=== PATIENT | female | born 1990 | race Caucasian/White ===

== ENCOUNTER → 2019-03-12 15:49 | Outpatient (CLI) | payer OTHER, SELFPAY ==
[2019-03-12 18:58] LABS: Probe Check PASS; Sample Adequacy Control PASS; Specimen Processing Control PASS; Trichomonas Vag DNA by PCR Negative (Negative)
[2019-03-12 19:55] LABS: Chlamydia Trachomatis by PCR Negative (Negative); Neisserai gonorrhoeae by PCR Negative (Negative); Probe Check PASS; Sample Adequacy Control PASS; Specimen Processing Control PASS
[2019-03-13 10:53] LABS: Hepatitis B Surface Antigen Non-Reactive (Nonreactive)
[2019-03-13 19:40] LABS: Rapid Plasmin Reagin (RPR) NONREACTIVE (NONREACTIVE)
[2019-03-14 10:59] LABS: HSV 2 IgG 9.28 index (0.00-0.90)
[2019-03-14 16:15] LABS: HIV - WCH Non-Reactive (Nonreactive)
== END ==
PROVIDERS: Visit Provider Obstetrics & Gynecology
DX: Z11.3 Encounter for screening for infections with a predominantly sexual mode of transmission (principal)
CPT/HCPCS: 36415; 86592; 86695; 86696; 86703; 87340; 87491; 87591; 87661

== ENCOUNTER → 2019-12-25 08:51 | Outpatient (CLI) | payer OTHER, SELFPAY ==
[2016-06-01 16:01] VITALS: BMI 27.3
[2019-12-25 10:39] LABS: Anion Gap 2 (5-15); BUN 8 mg/dL (7-18); BUN/Creat Ratio 9.7 RATIO (10-20); Calcium,Total 9.5 mg/dL (8.5-10.1); Chloride 108 mmol/L (98-107); Cholesterol 173 mg/dL (200); Creatinine, Serum 0.83 mg/dL (0.55-1.02); EST Glomerular Filtration Rate 87 mL/min (>60); Est Glom Filt Rate - Afr Amer 105 mL/min (>60); Glucose 113 mg/dL (74-106); High Density Lipoprotein 32 mg/dL; Potassium 4.2 mmol/L (3.5-5.1); Sodium Level 139 mmol/L (136-145); Thyroid Stim Hormone (TSH) 1.32 uIU/mL (0.358-3.74); Triglycerides 187 mg/dL; Very Low Density Lipoprotein 37 mg/dL (5-40)
== END ==
PROVIDERS: PCP Family Medicine; Referring Provider Family Medicine; Visit Provider Family Medicine
DX: Z00.00 Encounter for general adult medical examination without abnormal findings (principal); F32.9 Major depressive disorder, single episode, unspecified
CPT/HCPCS: 36415; 80048; 80061; 84443

== ENCOUNTER → 2020-12-24 08:42 | Outpatient (CLI) | payer OTHER, MEDICAID, SELFPAY ==
[2020-12-24 10:22] LABS: Anion Gap 8 (5-15); BUN 10 mg/dL (7-18); BUN/Creat Ratio 11.3 RATIO (10-20); Calcium,Total 9.9 mg/dL (8.5-10.1); Chloride 106 mmol/L (98-107); Creatinine, Serum 0.88 mg/dL (0.55-1.02); EST Glomerular Filtration Rate 80 mL/min (>60); Est Glom Filt Rate - Afr Amer 97 mL/min (>60); Glucose 103 mg/dL (74-106); Potassium 4.2 mmol/L (3.5-5.1); Sodium Level 139 mmol/L (136-145)
== END ==
PROVIDERS: PCP Family Medicine; Referring Provider Family Medicine; Visit Provider Family Medicine
DX: F31.9 Bipolar disorder, unspecified (principal)
CPT/HCPCS: 36415; 80048

== ENCOUNTER 2022-09-23 10:16 | Emergency (ER) | payer BC, MEDICAID, SELFPAY ==
[2022-09-23 10:17] VITALS: BP 156/87; PULSE 88; RESP 14; TEMP 36.2; O2SAT 98; BMI 30.7
--- NOTE | 2022-09-23 10:27 | RAD_ITS ---
HISTORY: pain. TECHNIQUE: XR Shoulder Min 2 Views. COMPARISON: None. FINDINGS: BONES : No acute fracture identified. Mineralization unremarkable. JOINTS: No dislocation. Joint spaces maintained. SOFT TISSUES: Left lung apex clear. RAD/Shoulder min 2 Views IMPRESSION: No acute fracture or dislocation identified in the left shoulder. Electronically Signed: Maryuri Murrieta MD at 11:14 EDT ,
--- NOTE | 2022-09-23 10:28 | EDS_ITS ---
HPI History of Present Illness Chief Complaint: Upper Extremity Injury Detail of Chief Complaint: Left shoulder injury Informant: patient Onset/Context/Timing Onset: Weeks Context: Gradual Onset Current Severity: Moderate Maximum Severity: Moderate Narrative Narrative: Patient presents with 3 weeks of left shoulder pain. She moved on September 03 and believes she injured her shoulder at that time. She continued to try to push through it for the first week. She continues to have pain that is worse with certain movements. She denies paresthesias. She had an appointment with [facility] this morning but states they refused to see her when she told them she did not get paid until next week. She has not been seen for this injury previously. She is right-hand dominant. PFSH PFS Medical History no medical history no medical history Home Medications sulfamethoxazole 800 mg-trimethoprim 160 mg tablet 1 tab PO BID ##6 06/01/16 [Rx Last Taken Unknown] naproxen 500 mg tablet (Naprosyn) 500 mg PO BID PRN pain #20 tabs 09/23/22 [Rx Last Taken Unknown] prednisone 20 mg tablet 60 mg (3 x 20 mg) PO DAILY #15 TABLETS 09/23/22 [Rx Last Taken Unknown] Allergy/AdvReac Type Severity Reaction Status Date / Time No Known Allergies Allergy Verified 09/23/22 10:17 Social History Smoking Status: Current every day smoker ROS ROS ED Constitutional Constitutional ED: Denies chills or fever(s) Eyes Eyes: Denies change in vision or discharge from eye(s) ENT ENT ED: Denies discharge from eye(s), rhinorrhea or sore throat Cardiovascular Cardiovascular: Denies chest pain or palpitations Respiratory/Chest Respiratory/Chest: Denies cough or dyspnea Gastrointestinal Gastrointestinal: Denies abdominal pain, nausea or vomiting Genitourinary Genitourinary ED: Denies dysuria Musculoskeletal Musculoskeletal: Reports extremity pain; Denies back pain Integumentary Denies Abrasions or rash Neurologic Neurologic: Denies headache(s) or weakness Psychiatric Psychiatric: Denies anxiety or depression Allergic/Immunologic Allergic/Immunologic ED: Denies lip swelling or urticaria EXAM Physical Exam Const Vital Signs: 09/23/22 10:17 Temperature 97.1 F L Temperature Source Temporal Pulse Rate 88 Respiratory Rate 14 Blood Pressure 156/87 H Blood Pressure Mean 110 Pulse Ox 98 Oxygen Delivery Method Room Air Positive well nourished and well developed General Appearance ED: well developed HEENT Reports moist mucous membranes Eyes EOMs intact bilaterally Chest Wall inspection of chest normal and palpation of chest normal Resp normal respiratory effort and clear to auscultation bilaterally Cardio regular rate and regular rhythm GI non-tender Back/Spine Cervical Spine: Negative for cervical spine tenderness Thoracic Spine / Upper Back: Negative for thoracic spinal tenderness Extremity normal to inspection Extremity Narrative: Tenderness over the anterior left shoulder. Decreased range of motion of the shoulder secondary to pain. No tenderness at the elbow or wrist. Strong distal pulses. Neuro oriented x3 Psych mental status grossly normal Skin Trauma: no lacerations or abrasions MDM MDM MDM Narrative Medical decision making narrative: Left shoulder x-rays obtained to evaluate for fracture, avulsion. Treatment and Re-Evaluation Narrative: Left shoulder x-rays interpreted by myself reveal no evidence of fracture or dislocation. No avulsion appreciated. Patient be placed in a sling. I will write her a 5-day burst of steroids after which she will start taking NSAIDs. I will refer her to [facility] for follow-up. Discharge Plan Triage Chief Complaint: Upper Extremity Injury ED Provider: Sujatha Glez Dx/Rx/DC Orders Clinical Impression: Sprain of left shoulder Instructions: ED Shoulder Sprain Prescriptions: New naproxen [Naprosyn] 500 mg tablet 500 mg PO BID PRN (Reason: pain) Qty: 20 0RF Rx Instructions: Start Naproxen after prednisone course completed prednisone 20 mg tablet 60 mg PO DAILY Qty: 15 0RF No Action sulfamethoxazole-trimethoprim 1 TABLET tablet 1 tab PO BID Qty: 6 0RF Primary Care Provider: Jose Pinto Referrals: Jose Pinto MD [Primary Care Provider] - Claude Raymond MD [Med Staff - Active Staff] - 1 Week if not improving Disposition Disposition: Home, Self Care
== END 2022-09-23 11:06 | disposition home or self-care (01) ==
LOC: ED 11:05
PROVIDERS: Emergency Provider Emergency Medicine; Visit Provider Emergency Medicine
DX: S43.402A Unspecified sprain of left shoulder joint, initial encounter (principal); F17.200 Nicotine dependence, unspecified, uncomplicated; X58.XXXA Exposure to other specified factors, initial encounter
CPT/HCPCS: 73030; 99283

== ENCOUNTER 2022-11-24 06:58 | Day surgery (SDC) | payer BC, MEDICAID, SELFPAY ==
[2022-11-22 08:36] LABS: Hemoglobin 12.8 g/dL (12.0-15.0); Mean Corp Hgb Conc 33.7 g/dL (32-36); Mean Corpuscular Hgb 30.6 pg (27.0-32.0); Mean Corpuscular Volume 90.9 fL (81-99); Platelet Count 315 K/mm3 (150-450); RBC Distribution Width CV 12.3 % (11.6-14.6); RBC Distribution Width SD 41.1 fl (35.1-43.9); Red Blood Count 4.18 M/mm3 (4.2-5.4); White Blood Count 11.2 K/mm3 (4.4-11.0)
[2022-11-24] VITALS (8 sets, daily range): BP systolic 128–140; BP diastolic 67–94; PULSE 74–89; RESP 16–18; TEMP 36.3–37; O2SAT 98–100; BMI 31.1
--- NOTE | 2022-11-24 | IMM_PTH ---
PATIENT: DOMINIK JEONG LOC: [facility] [place] U#:[id number] AGE/SX: 32/F ROOM: RE11/24/[address]: Dr. Aissatou Rebolledo DO : 1990 BED: DIS: 11/24/2022 SPEC #: [id number] RECD: 11/25/22 14:10 STATUS: ISAEL REQ #: [id number] CAIN: 11/24/22 00:[address]: Aissatou Rebolledo DEPT: IMMUNOHISTOCHEMISTRY RECD BY: Alexandra Morales ENTERED: 11/25/22 14:12 SP TYPE: IMMUNO OT DR: Janna Primary Care Phys Tissues: A - UTERINE CERVIX LEEP B - Endocervical Procedures: p16 (initial) KI-67 (add) PHYSICIAN & INSTITUTION [facility] [phone] SPECIMEN INFORMATION: Tissue Source: A - Cervical cone, B - Endocervical curettings Clinical Info: High-grade cervical dysplasia Specimen Number: [id number] A3 & B CPT code: 21339 x2, 93567 x2 METHODOLOGY: Deparaffinized sections of prefer/formalin-fixed tissue or PAP/DQ stained slides are incubated with monoclonal/polyclonal antibodies/oligonucleotide probes. Localization is made via biotin free immunoperoxidase method. Appropriate controls are performed and reacted as expected. Results on target cell population are indicated in the following table: RESULTS: ANTIBODY / CLONE RESULT Block A3 P16 (E6H4) positive, block staining Ki-67 (30-9) positive, high Block B P16 (E6H4) positive, block staining Ki-67 (30-9) positive, high These tests were developed and their performance characteristics determined by [facility]. They may not have been cleared or approved by the U.S. Food and Drug Administration. The FDA has determined that such clearance or approval is not necessary. The above immunohistochemical/dualISH markers are ordered and reviewed by the Pathologist. INTERPRETATION: A. Cervix, LEEP conization: Moderate to severe squamous dysplasia. B. Endocervical curettings: Moderate to severe squamous dysplasia. JEFFREY:halie 11/28/2022
--- NOTE | 2022-11-24 | CONE_PTH ---
PATIENT: DOMINIK JEONG LOC: [facility] – [place] U#:[id number] AGE/SX: 32/F ROOM: RE11/24/[address]: Dr. Aissatou Rebolledo DO : 1990 BED: DIS: 11/24/2022 SPEC #: [id number] RECD: 11/24/22 09:29 STATUS: ISAEL ANTHONY #: [id number] CAIN: 11/24/22 00:[address]: Aissatou Rebolledo DEPT: SURGICAL PATHOLOGY RECD BY: Stefany Jara ENTERED: 11/24/22 12:28 SP TYPE: Leep Cone MODESTO DR: Janna Primary Care Phys Tissues: A - UTERINE CERVIX LEEP B - Endocervical Procedures: Surgery Specimen Level IV Surgery Specimen Level V HEADER OPERATION: LEEP cone PRE-OP DIAGNOSIS: High-grade cervical dysplasia TISSUE SUBMITTED: A - Cervical cone, B - Endocervical curettings MICROSCOPIC DIAGNOSIS A. Cervix, LEEP conization: Mild, moderate and severe squamous dysplasia with HPV changes (HGSIL and SAMANTA I-III). Acute and chronic inflammation and squamous metaplasia. High-grade dysplastic changes are noted focally at the ectocervical resection margin. See comment. B. Endocervical curettings: Moderate to severe squamous dysplasia. See comment. SJ:rg 11/25/2022 COMMENT A & B. Immunohistochemistry ([id number]) for surrogate HPV marker (p16) supports the above diagnosis. Clinical correlation and appropriate follow up are necessary. Case has been reviewed in consultation with Dr. Whitley who concurs with the above diagnosis. IDC:AM MICROSCOPIC DESCRIPTION Slides are reviewed. GROSS DESCRIPTION A - Received in fixative is one container labeled with the patient's name and designated cervical cone. The specimen consists of a previously opened piece of nixon, indurated tissue consisting of LEEP conization measuring 3.0 x 1.6 x 0.4 cm. No mucosal lesion is identified. The specimen presumed to be open at 12 o'clock position. Nonmucosal surface is inked black. Also present in the container is a small piece of mucoid tissue measuring 0.5 x 0.3 x 0.1 cm. The specimen is serially sectioned and submitted entirely in four cassettes with each cassette containing one quadrant, 1 - 12 to 3 o'clock, 2 - 3 to 6 o'clock, 3 - 3 to 9 o'clock and 4 - 9 to 12 o'clock. B - Received in fixative is one container labeled with the patient's name and designated endocervical curettings. The specimen consists of a scant fragment of mucoid tissue measuring in aggregate 0.5 x 0.2 x 0.1 cm. The specimen is totally submitted in one cassette. / SJ:rg 11/24/2022 TC:5 CPT: 49633, 35991
[2022-11-24 07:29] LABS: Internal QC Validated? YES +Cl - CLEAR BKGD; Pregnancy, Urine Negative Negative; Record Kit Lot#,Urine Preg HCG0000667200
[2022-11-24] MEDS: Lactated Ringers 1,000 ML 15 ML IV (07:53)
[2022-11-24] MEDS: Lidocaine 1% /Epi 1:100 (20ml) 20 ML Vial (08:50)
[2022-11-24] MEDS: Iodine/Potassium Iodide 14ML Bottle 1 DRP TOPICAL (08:56)
[2022-11-24] MEDS: FERRIC SUBSULFATE 8 GM SOLN (09:06)
--- NOTE | 2022-11-24 09:10 | DCINST_ITS ---
Discharge Instructions Diet Discharge Diet: No restrictions Activity Discharge Activity: May Not Drive (for first 24 hours after your surgery, then it is ok to drive) and May Not Shower (for first 24 hours after your surgery, then it is ok to shower) May resume sexual activity in: 4 weeks (no soaking in water and nothing in the vagina for 4 weeks) Weight Bearing Status: Weight bearing as tolerated Lifting Restrictions: none Additional Activity Instructions:: Can alternate Tylenol and Ibuprofen for the cramping Can use a heating pad as needed for the cramping Dressing / Incision Call your doctor if you observe: Fever of 101 or Higher, Coldness, Increased Pain, Numbness or Tingling, Change in Color, Inability to urinate, Inability to have a bowel movement, Using more than 1 pad per hour, Shortness of breath, Dizziness, Fainting spells, Swelling in the ankles, Chest pain, Increased palpitations (irregular heartbeat), Calf discomfort and Uncontrolled pain Follow Up Care Please Follow Up With: Aissatou Rebolledo DO When: 2-4 weeks post op Test Results: Test results from this visit will be discussed in further detail at your follow- up appointment, if applicable. Discharge Plan Admission Primary Reason for Your Visit: surgery Attending Provider: Aissatou Rebolledo Primary Care Provider: Care PhysicianJanna Primary Instructions Patient Instructions: Leep Discharge Orders/Prescriptions Prescriptions: Continued valacyclovir 500 mg tablet 500 mg PO DAILY drospirenone-ethinyl estradiol [Loryna (28)] 3-0.02 mg tablet 1 tab PO DAILY Referrals / Follow Up: Care PhysicianJanna Primary [Primary Care Provider] - Disposition Disposition (needs filled in before D/C Order can be placed): Home, Self Care
--- NOTE | 2022-11-24 09:12 | PCM.OPRPT ---
Problems Associated Problem List Diagnoses (1) SAMANTA II (cervical intraepithelial neoplasia II): Report of Operation Date of Procedure: 11/24/22 Pre-Operative Diagnosis: CIN2 Post-Operative Diagnosis: CIN2 Surgery/Procedure Performed:: Cervical LEEP with ECC Description of Surgical Findings:: Normal appearing vaginal mucosa. Grossly normal appearing cervix Surgeon: Aissatou Rebolledo Type of Anesthesia: MAC Special Medications: None Specimen's removed: Cervical LEEP biopsy Endocervical curettings Drains: None Estimated Blood Loss (mL): < 50 Fluids Replaced: 700 mL Description of Procedure: The patient was taken to the operating room where MAC anesthesia was induced. She was prepped and draped in the dorsal lithotomy position using yellowfin stirrups. A speculum was placed, as well as vaginal sidewall retractors, to expose the cervix. A single-tooth tenaculum was placed on the anterior lip of the cervix. The cervix was injected circumferentially and submucosally with 1% lidocaine with epinephrine. Lugol's solution was placed. A cervical excision was performed in usual fashion with a 2.0 cm x 1.0 cm loop. An ECC was performed. Specimens were sent to pathology for review. The cervical bed was then cauterized with a 5 mm roller ball. Monsel's solution was placed. Bleeding was hemostatic. All instruments were removed from the vagina. A vaginal sweep was performed. Instrument and sponge counts were correct and the patient was taken to the recovery room in good condition. Grafts/Implants Used: None Procedure Start Time: 08:50 Procedure Stop Time: 09:08 Complications None Admit VTE Documentation VTE Present on Admission: No VTE Mechan Device Prophylaxis: SCD's
== END 2022-11-24 10:41 | disposition home or self-care (01) ==
LOC: SDC 06:59 → AC 06:59
PROVIDERS: Referring Provider Obstetrics & Gynecology; Visit Provider Obstetrics & Gynecology
PROC: 0UBC7ZZ Excision of Cervix, Via Natural or Artificial Opening (ICD-10-PCS; CPT 57522; principal; 2022-11-24 08:30)
DX: N87.1 Moderate cervical dysplasia (principal); Z87.891 Personal history of nicotine dependence; Z86.19 Personal history of other infectious and parasitic diseases; E28.2 Polycystic ovarian syndrome
CPT/HCPCS: 57522; 00940; 36415; 81025; 85027; 86850; 86900; 86901; 88305; 88307; 88341; 88342; J7120; J2405